=== PATIENT | male | born 1945 | race Caucasian/White ===

== ENCOUNTER 2017-09-15 12:20 | Outpatient (RCR) | payer MEDICARE, SELFPAY | END 2017-09-15 19:00 | disposition home or self-care (01) | LOC: PT 12:20 | PROVIDERS: Family Provider Family Medicine; PCP Family Medicine; Visit Provider Family Medicine | DX: R69 Illness, unspecified (principal) ==

== ENCOUNTER 2018-04-24 14:57 | Emergency (ER) | payer MEDICARE, SELFPAY ==
[2018-04-24 14:58] VITALS: BP 149/121; PULSE 96; RESP 16; TEMP 36.6; O2SAT 98; BMI 21.2
--- NOTE | 2018-04-24 15:29 | CT_ITS ---
STUDY: CT BRAIN WITHOUT CONTRAST REASON FOR EXAM: Male, 72 years old. Mental status change RADIATION DOSAGE (If Supplied By Facility): CTDIvol = ( 44.99 ) mGy, DLP = ( 762.36 ) mGycm TECHNIQUE: Transaxial CT imaging of the brain was performed without administration of intravenous contrast material. Individualized dose optimization techniques were used for this CT. COMPARISON: 09/14/2016. FINDINGS: There is no definite acute abnormality. There is diffuse mild symmetric atrophy. There is atrophy of the posterior fossa structures. There is diffuse small vessel ischemic disease of the white matter. There are stable bilateral lacunar infarcts. There is no definite acute infarct. There is no bleed. There is no gross mass, mass effect, or midline shift. There is no acute abnormality of the skull. No fractures. Grossly normal orbits. Grossly normal sinuses. CT/Brain/Head without Contrast IMPRESSION: Chronic age related changes and atrophy. No acute abnormality. Electronically Signed: Jorge A No MD at 16:26 EDT , Service support ,
--- NOTE | 2018-04-24 15:42 | ED.VISSUMM ---
- ER Visit Summary Date of Service: 04/24/18 Chief Complaint: Inappropriate behavior at his retirement History of Present Illness: The patient is a 72 M history of Alzheimer's dementia, Parkinson's disease and hypertension. [facility] called ahead and patient's is in the room. Reportedly he has been displaying hypersexual behavior at the retirement. And was in a female residents room recently. They want him to be medically cleared and then transferred to a geriatric psychiatric facility. Patient and his deny any recent illness. He denies any fever. Physical Examination: Older male no acute distress. Initial blood pressure 149/121. Afebrile. Pulse ox 98% on room air no hypoxia. He is in no distress. Patient is an obvious parkinsonian tremor both upper extremities. HEENT exam unremarkable. Moist mucous membranes. No signs of traumaor scalp. Neck nontender. No lymphadenopathy. Lungs clear to auscultation bilaterally. Heart regular rate and rhythm no murmur. Abdomen soft and nontender. Normal bowel sounds no peritoneal signs. He is moving all 4 extremities. No deformities nontender no edema. Back exam nontender. 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 Test Results: CBC normal. White count is 6. Hemoglobin 14. Chemistries unremarkable. UA negative. CT of his brain showed chronic changes but no acute process as reviewed by me and read by the radiologist. Tox screen negative. Alcohol negative. Emergency Department Course and Treatment: Elderly male who needs medical clearance to go to Geriatric psychiatric facility.. Treatment Plan: Repeat exam the patient is doing well teen 16:50. I discussed test results with both he and his . We are setting up transfer to the geriatric psychiatric facility Disposition: Transfer Impression: Displaying hypersexual behavior Medical clearance history of Parkinson's disease History of Alzheimer's dementia This note was generated with [employer] dictation software. It may contain incorrect words, spelling, and punctuation that were not noted in review of the chart prior to signing ED Disposition - Plan for ED Patient: Chief Complaint: Other, Pain/Inj Referrals: Rohan Yi III, MD [Primary Care Provider] -
--- NOTE | 2018-04-24 15:46 | ED.DCSUM_ITS ---
- ER Visit Summary Date of Service: 04/24/18 Chief Complaint: Inappropriate behavior at his retirement History of Present Illness: The patient is a 72 M history of Alzheimer's dementia, Parkinson's disease and hypertension. intermediate called ahead and patient's is in the room. Reportedly he has been displaying hypersexual behavior at the retirement. And was in a female residents room recently. They want him to be medically cleared and then transferred to a geriatric psychiatric facility. Patient and his deny any recent illness. He denies any fever. Physical Examination: Older male no acute distress. Initial blood pressure 149/ 121. Afebrile. Pulse ox 98% on room air no hypoxia. He is in no distress. Patient is an obvious parkinsonian tremor both upper extremities. HEENT exam unremarkable. Moist mucous membranes. No signs of traumaor scalp. Neck nontender. No lymphadenopathy. Lungs clear to auscultation bilaterally. Heart regular rate and rhythm no murmur. Abdomen soft and nontender. Normal bowel sounds no peritoneal signs. He is moving all 4 extremities. No deformities nontender no edema. Back exam nontender. Neurologically reportedly has dementia but he knows day, month, year where he is at and he knows the president + publisher. Test Results: CBC normal. White count is 6. Hemoglobin 14. Chemistries unremarkable. UA negative. CT of his brain showed chronic changes but no acute process as reviewed by me and read by the radiologist. Tox screen negative. Alcohol negative. Emergency Department Course and Treatment: Elderly male who needs medical clearance to go to Geriatric psychiatric facility.. Treatment Plan: Repeat exam the patient is doing well teen 16:50. I discussed test results with both he and his . We are setting up transfer to the geriatric psychiatric facility Disposition: Transfer Impression: Displaying hypersexual behavior Medical clearance history of Parkinson's disease History of Alzheimer's dementia This note was generated with [employer] dictation software. It may contain incorrect words, spelling, and punctuation that were not noted in review of the chart prior to signing ED Disposition - Plan for ED Patient: Chief Complaint: Other, Pain/Inj Referrals: Rohan Yi III, MD [Primary Care Provider] -
[2018-04-24 15:48] LABS: Absolute Lymphocyte Count 0.71 X10^3/ul (0.83-4.51); Absolute Neutrophil Count 5.2 X10^3/uL (2.0-7.7); Basophil# 0.01 X10^3/uL; Basophil% 0.2 % (0-1); Eosinophil# 0.07 X10^3/uL; Eosinophils% 1.1 % (0-5); Hematocrit 40.7 % (40-54); Lymphocyte # 0.71 X10^3/ul (4.0); Mean Corp Hgb Conc 34.4 g/gl (32-36); Mean Platelet Vol. 9.6 fl (6.2-12.0); Monocyte# 0.42 X10^3/uL; Monocyte% 6.5 % (0-10); Neutrophil # 5.24 X10^3/uL (2.7-7.7); Platelet Count 170 K/mm3 (150-450); RBC Distribution Width CV 12.6 % (11.6-14.6); RBC Distribution Width SD 41.4 fl (35.1-43.9); Red Blood Count 4.52 M/mm3 (4.6-6.2); White Blood Count 6.5 K/mm3 (4.4-11.0)
[2018-04-24 15:50] LABS: POSITIVE COUNT NO; POSITIVE DIFFERENTIAL NO; POSITIVE MORPHOLOGY NO
[2018-04-24 16:02] LABS: Anion Gap 4 (5-15); BUN 16 mg/dL (7-18); BUN/Creat Ratio 16.4 RATIO (10-20); Calcium,Total 8.7 mg/dL (8.5-10.1); Chloride 103 mmol/L (98-107); Creatinine, Serum 0.98 mg/dL (0.70-1.30); EST Glomerular Filtration Rate 80 mL/min (>60); Est Glom Filt Rate - Afr Amer 97 mL/min (>60); Glucose 203 mg/dL (74-106); Potassium 4.4 mmol/L (3.5-5.1); Sodium Level 139 mmol/L (136-145)
[2018-04-24 16:19] LABS: Alcohol, Blood (Medical)-Serum < 3.0 mg/dL
[2018-04-24 16:30] LABS: Amphetamine Urine VISTA NEGATIVE (<1000 ng/mL); Barbiturate Urine VISTA NEGATIVE (< 200 ng/mL); Benzodiazepine Urine VISTA NEGATIVE (< 200 ng/mL); Cocaine Urine VISTA NEGATIVE (< 300 ng/mL); Ecstacy Urine VISTA NEGATIVE (< 500 ng/mL); Methadone Urine VISTA NEGATIVE (< 300 ng/mL); PCP Urine VISTA NEGATIVE (< 25 ng/mL); THC Urine VISTA NEGATIVE (< 50 ng/mL); Vista UDS pH Range 6
--- NOTE | 2018-04-24 16:34 | EKG12_ITS ---
Test Reason : Blood Pressure : / mmHG Vent. Rate : 066 BPM Atrial Rate : 066 BPM P-R Int : 154 ms QRS Dur : 092 ms QT Int : 386 ms P-R-T Axes : 060 -19 043 degrees QTc Int : 404 ms Normal sinus rhythm Minimal voltage criteria for LVH, may be normal variant Borderline ECG Confirmed by KALANI RUFF, CHLOE ([id number]), book or script editor ELSA BELL ([id number] on 04/26/2018 9:30:09 AM Referred By: ROMARIO Confirmed By:CHLOE URIARTE MD
[2018-04-24 16:37] LABS: Bacteria 0 SEEN /hpf (None Seen); Mucous, Urine 0 SEEN /hpf (<or=2+); Red Blood Cells-Urine 0 SEEN /hpf (0-5); White Blood Cells 0 SEEN /hpf (0-5)
[2018-04-24 16:41] LABS: Color, Urine Yellow (Yellow); Glucose, Dipstick Normal (Normal); Ketone-Dipstick 5 mg/dl (Negative); Leukocyte Esterase-Dipstick Negative /ul (Negative); Nitrite-Dipstick Negative (Negative); Occult Blood-Urine Negative /ul (Negative); Protein-Dipstick 15 mg/dl (Negative); Urine Bilirubin Dipstick Negative (Negative); Urine Clarity Clear (Clear); Urine Urobilinogen 1 mg/dl (Normal)
[2018-04-24 16:47] LABS: Squamous Epithelial Cells - UA 0-5 SEEN /hpf (0-5)
--- NOTE | 2018-04-24 16:51 | ED.RN ---
I T[facility]ED TO [facility] ABOUT [facility]. SHE IS GOING TO PASS ON TO [facility]
[2018-04-24 17:41] VITALS: BP 159/77; PULSE 61; RESP 18; O2SAT 97
--- NOTE | 2018-04-24 20:46 | ED.RN ---
talked with nurse at [facility] to clarify Dementia diagnosis and meds.
--- NOTE | 2018-04-24 22:44 | ED.RN ---
pt's gave him his scheduled meds at 1900
[2018-04-24 22:59] VITALS: BP 136/91; PULSE 76; RESP 16; O2SAT 95
--- NOTE | 2018-04-24 23:38 | ED.RN ---
gave report to Roxana at [facility]. At this time there is no squad to transport pt. will call in AM when we have time of transfer.
[2018-04-25 01:11] VITALS: PULSE 77; RESP 16; O2SAT 98
--- NOTE | 2018-04-25 07:44 | ED.RN ---
[facility] WAS CALLED AND NOTIFIED THAT PT STILL NEEDS HIS 7AM MEDS. UNFORTUNATELY TALKED WITH AFTER PT WAS PICKED UP BY [facility] AND SHE NOTIFIED THEY NEEDED TO BE GIVEN AT 7AM.
== END 2018-04-25 07:43 ==
LOC: ED 15:38
PROVIDERS: Emergency Provider Emergency Medicine; Family Provider Family Medicine; PCP Family Medicine
DX: F52.8 Other sexual dysfunction not due to a substance or known physiological condition (principal); G30.9 Alzheimer's disease, unspecified; F02.81 Dementia in other diseases classified elsewhere, unspecified severity, with behavioral disturbance; G20 Parkinson's disease; I10 Essential (primary) hypertension; Z79.899 Other long term (current) drug therapy
CPT/HCPCS: 70450; 80048; 80307; 80320; 81001; 85025; 93005; 99283; G0480